=== PATIENT | female | born 1960 | race Caucasian/White ===

== ENCOUNTER 2016-04-05 10:14 | Emergency (ER) | payer MEDICARE, OTHER ==
--- NOTE | ~2016-04-05 | CR172 ---
[facility] A Service of [facility] RADIOLOGY TEXT RESULTS PATIENT: THOMPSON OCASIO LOCATION: SED : 64 UNIT #: [id number] AGE: [address]: Lucio Ren MD SEX: F ORDER DR: [id number] [place] [id number] E MR#: [id number] Acc #: [id number] NAME: THOMPSON OCASIO : 1960 SEX: F STUDY DATE/TIME: 04/05/2016 10:44 UNIT: SED ROOM: STUDY DESCRIPTION: CR Knee 3 Views Lt Attending Physician: Lucio Ren M.D. Ordering Physician: Lucoi Ren M.D. Primary Care Physician: Lucio Ren M.D. MEDICAL IMAGING REPORT This report is preliminary unless electronic signature is present. EXAM Left knee series, 04/05/2016. HISTORY Trauma; fall. Also wants thumb looked at. Fall last night outside; tripped over flower pot. Headache. Left knee pain/soreness. FINDINGS AP, lateral, and sunrise views of the left knee are presented. No traumatic fracture or malalignment. Mild narrowing, medial joint space compartment. Minimal vascular calcification. Small subcutaneous calcification, medial aspect of the patella. No soft tissue defect, subcutaneous air, or radiodense foreign body. No joint effusion seen. Dictated by... Jovany Kelly M.D. THIS IS AN ELECTRONICALLY VERIFIED REPORT Jovany Kelly M.D. at 04/06/2016 7:54 AM JC/cynthia TD: 04/05/2016 12:18 JOB #: [id number] MEDICAL IMAGING REPORT
--- NOTE | ~2016-04-05 | CT71 ---
[facility] A Service [facility] RADIOLOGY TEXT RESULTS PATIENT: THOMPSON OCASIO LOCATION: SED : 64 UNIT #: [id number] AGE: [address]: Lucio Ren MD SEX: F ORDER DR: [id number] [place] [id number] E MR#: [id number] Acc #: [id number] NAME: THOMPSON OCASIO : 1960 SEX: F STUDY DATE/TIME: 04/05/2016 10:46 UNIT: SED ROOM: STUDY DESCRIPTION: CT Head Wo Contrast Attending Physician: Lucio Ren M.D. Ordering Physician: Lucio Ren M.D. Primary Care Physician: Lucio Ren M.D. MEDICAL IMAGING REPORT This report is preliminary unless electronic signature is present. EXAM Head CT, 04/05 INDICATION Patient fell last night outside. Tripped over flower pot. Patient has headaches since that time. Pain is 10/10. The patient has prior history of intracranial hemorrhage. TECHNIQUE This CT exam was performed with one or more of the following radiation dose reduction techniques: automatic exposure control, adjustment of mA and/or kV according to patient size, and iterative reconstruction. FINDINGS Axial images were obtained from the base to the vertex without contrast. Comparison is made with 07/16/2014. There has been interval left side frontotemporal craniotomy. No skull fracture. There is acute sphenoid sinusitis on the left. Ventricular size and configuration are normal. There is no acute infarct or hemorrhage. There are no masses. IMPRESSION 1. The brain is within normal limits. 2. Interval left side craniotomy. No skull fractures or acute hemorrhage identified. 3. Mild acute left sphenoid sinusitis. Dictated by... Marcelo Herron Jr., M.D. THIS IS AN ELECTRONICALLY VERIFIED REPORT Marcelo Herron Jr., M.D. at 04/05/2016 3:51 PM PAMELA/amber [facility] A Service of [facility] RADIOLOGY TEXT RESULTS PATIENT: THOMPSON OCASIO LOCATION: [facility] : [birth year] UNIT #: [id number] AGE: [address]: Lucio Ren MD SEX: F ORDER DR: TD: 04/05/2016 12:00 JOB #: [id number] MEDICAL IMAGING REPORT
[~2016-04-05 10:14] MED LIST: ABILIFY PO; ACTOS; ALPRAZOLAM PO; AMOXICILLIN PO; ASPIRIN EC81 M1 PO; ASPIRIN PO; ATIVAN PO; BACTRIM DS TABL1 TAB PO; BACTROBAN15 GM TOP; BENTYL20 M1 PO; BLOOD PRESSURE MED PO; BLOOD SUGAR MED; CIPRO PO; CLEOCIN PO; COZAAR PO; DEPAKOTE PO; DIOVAN; DIOVAN40 MG PO; DOLOBID500 MG PO; FLEXERIL10 MG PO; FLOMAX0.4 MG PO; FLONASE16 GM; GABAPENTIN; GLUCOTROL; GLUCOTROL PO; HCTZ; HUMULOG INSULIN; IBUPROFEN800 MG PO; IMODIUM2 MG PO; JANUVIA PO; LEVEMIR INSULIN SQ; LIPITOR; LIPITOR PO; LOPRESSOR PO; LYRICA75 MG PO; METFORMIN HCL500 M1 PO; METFORMIN PO; MICROZIDE12.5 M1 PO; NAPROXEN PO; NEXIUM; NEXIUM PO; NORVASC10 MG PO; NORVASC2.5 MG; OPANA10 MG; OXYCODONE15 MG; PERCOCET 51 UDTAB 5/ DOB; PERCOCET PO; PERCOCET5/325 PO; PHENERGAN PO; PHENERGAN25 M1 PO; PHENERGAN25 MG PO; PREDNISONE PO; PROAIR HFA8.5 GM INH; REMERON; SOMA; SOMA250 MG; SYMBICORT INH; TOPROL XL; TRICOR; TRICOR PO; VOLTAREN50 MG PO; VOLTAREN75 MG PO; ZITHROMAX PO; ZYRTEC; ZYRTEC PO
[2016-04-05 10:23] LABS: URINE SOURCE CLEAN CATCH
[2016-04-05 10:25] LABS: URINE APPEARANCE CLEAR; URINE BILIRUBIN NEG (NEG); URINE BLOOD NEG (NEG); URINE COLOR YELLOW; URINE GLUCOSE 300 MG/DL (NORM); URINE KETONE NEG (NEG); URINE LEUKOCYTE ESTERASE NEG (NEG); URINE NITRATE NEG (NEG); URINE PROTEIN 1+ (NEG); URINE SPECIFIC GRAVITY 1.015 (1.003-1.035); URINE UROBILINOGEN 0.2 MG/DL (NORM)
[2016-04-05 10:27] LABS: MICRO INDICATED? YES
[2016-04-05 10:36] LABS: CULTURE INDICATED? NO; URINE BACTERIA NEG (NEG); URINE RBC 0-2 /[HPF] (0-2); URINE WBC 0-2 /[HPF] (0-5)
== END 2016-04-05 12:04 | disposition home or self-care (01) ==
LOC: SED 10:14
PROVIDERS: Emergency Medicine
DX: S80.02XA Contusion of left knee, initial encounter (principal); J32.3 Chronic sphenoidal sinusitis; J44.9 Chronic obstructive pulmonary disease, unspecified; F41.9 Anxiety disorder, unspecified; F17.210 Nicotine dependence, cigarettes, uncomplicated; Z88.8 Allergy status to other drugs, medicaments and biological substances; Z88.5 Allergy status to narcotic agent; Z79.899 Other long term (current) drug therapy; Z79.4 Long term (current) use of insulin
CPT/HCPCS: 70450; 73562; 81003; 99284

== ENCOUNTER 2016-08-11 03:58 | Emergency (ER) | payer MEDICARE, OTHER ==
--- NOTE | ~2016-08-11 | CR72 ---
[facility] A Service of [facility] & [facility] RADIOLOGY TEXT RESULTS PATIENT: THOMPSON OCASIO LOCATION: [facility] : [birth year] UNIT #: [id number] AGE: [address]: Elmer Munoz MD SEX: F ORDER DR: [id number] [facility] [address] [place], [place] [address] [id number] E MR#: [id number] Acc #: [id number] NAME: THOMPSON OCASIO : 1960 SEX: F STUDY DATE/TIME: 08/11/2016 4:36 UNIT: [facility] ROOM: STUDY DESCRIPTION: CR Chest Single View Portable Attending Physician: Elmer Munoz M.D. Ordering Physician: Elmer Munoz M.D. Primary Care Physician: Lucio Ren M.D. MEDICAL IMAGING REPORT This report is preliminary unless electronic signature is present EXAM Single view chest INDICATION Shortness of air 3 days. FINDINGS Single portable AP chest compared to 09/23/2011. The heart and mediastinal contours are normal. Lungs are clear. IMPRESSION Negative chest radiograph. Dictated by... Tono Vogt M.D. THIS IS AN ELECTRONICALLY VERIFIED REPORT Tono Vogt M.D. at 08/11/2016 5:18 AM CAM/tadeo TD: 08/11/2016 05:02 JOB #: [id number] MEDICAL IMAGING REPORT Page 1 of 1 COPY
[2016-08-11 04:58] LABS: BASOPHIL# 0.1 X10e3 (0-0.3); BASOPHIL% 0.9 % (0-2.5); DIFF IND NO; EOSINOPHIL# 0.6 X10e3 (0-0.7); HEMATOCRIT 40.2 % (35.0-45.0); HEMOGLOBIN 13.5 gm/dL (12.0-16.0); LYMPHOCYTE# 2.7 X10e3 (1.0-3.5); LYMPHOCYTE% 29.2 % (17.0-45.0); MEAN CORPUSCULAR HEMOGLOBIN 30.3 PG (28-34); MEAN CORPUSCULAR HGB CONC 33.7 g/dL (30-36); MEAN PLATELET VOLUME 10.9 FL (6.5-11.5); MONOCYTE# 0.5 X10e3 (0-1.0); MONOCYTE% 5.9 % (3.0-12.0); NEUTROPHIL# 5.3 X10e3 (1.5-7.1); PLATELET COUNT 222 X10e3 (140-420); RED BLOOD COUNT 4.46 X10e (3.90-5.30); RED CELL DISTRIBUTION WIDTH 12.1 % (11.0-15.5); WHITE BLOOD COUNT 9.3 X10e3 (4.0-10.5)
[2016-08-11 05:19] LABS: BUN/CREATININE RATIO 28.18; CALCIUM SERUM 9.1 mg/dL (8.4-10.2); CREATININE SERUM 1.1 mg/dL (0.6-1.4); GLOM FILT RATE Estimated 57.3 mL/min (>60)
[2016-10-31] MEDS ORDERED: TRICOR (09:53)
[2016-10-31] MEDS ORDERED: METOPROLOL SUCC50 MG PO (09:53)
[2016-10-31] MEDS ORDERED: NORVASC (09:54)
[2016-10-31] MEDS ORDERED: PROAIR HFA8.5 GM (09:54)
[2016-10-31] MEDS ORDERED: LIPITOR (09:54)
[2016-10-31] MEDS ORDERED: SYMBICORT80 INH (09:54)
[2016-10-31] MEDS ORDERED: HCTZ (09:54)
[2016-10-31] MEDS ORDERED: LEVEMIR (09:55)
== END 2016-08-11 05:45 | disposition home or self-care (01) ==
LOC: CED 03:58
PROVIDERS: Emergency Medicine
DX: J44.1 Chronic obstructive pulmonary disease with (acute) exacerbation (principal); R60.0 Localized edema; E11.9 Type 2 diabetes mellitus without complications; I50.9 Heart failure, unspecified; F17.200 Nicotine dependence, unspecified, uncomplicated; Z88.8 Allergy status to other drugs, medicaments and biological substances; Z88.5 Allergy status to narcotic agent; Z79.899 Other long term (current) drug therapy; Z79.4 Long term (current) use of insulin
CPT/HCPCS: 36415; 71010; 80048; 85025; 94640; 99284

== ENCOUNTER 2016-09-22 11:31 | Emergency (ER) | payer MEDICARE, OTHER ==
[2016-09-22 11:49] LABS: URINE APPEARANCE CLEAR; URINE BLOOD NEG (NEG); URINE COLOR YELLOW; URINE KETONE TRACE (NEG); URINE LEUKOCYTE ESTERASE NEG (NEG); URINE NITRATE NEG (NEG); URINE PROTEIN 2+ (NEG); URINE SOURCE CLEAN CATCH; URINE SPECIFIC GRAVITY >=1.030 (1.003-1.035); URINE UROBILINOGEN 0.2 MG/DL (NORM)
[2016-09-22 11:54] LABS: MICRO INDICATED? YES; URINE BILIRUBIN NEG (NEG); URINE GLUCOSE NORM (NORM)
[2016-09-22 11:55] LABS: CULTURE INDICATED? NO; URINE BACTERIA NEG (NEG); URINE RBC NEG /[HPF] (0-2); URINE SQUAMOUS EPITHELIAL CELL OCCAS /[HPF]; URINE WBC NEG /[HPF] (0-5)
[2016-09-22 11:56] LABS: URINE MUCUS PRESENT
[2016-10-31] MEDS ORDERED: TRICOR (09:53)
[2016-10-31] MEDS ORDERED: METOPROLOL SUCC50 MG PO (09:53)
[2016-10-31] MEDS ORDERED: PROAIR HFA8.5 GM (09:54)
[2016-10-31] MEDS ORDERED: HCTZ (09:54)
[2016-10-31] MEDS ORDERED: LIPITOR (09:54)
[2016-10-31] MEDS ORDERED: NORVASC (09:54)
[2016-10-31] MEDS ORDERED: SYMBICORT80 INH (09:54)
[2016-10-31] MEDS ORDERED: LEVEMIR (09:55)
== END 2016-09-22 12:29 | disposition home or self-care (01) ==
LOC: SED 11:31
PROVIDERS: Emergency Medicine
DX: R11.10 Vomiting, unspecified (principal); R19.7 Diarrhea, unspecified; J44.9 Chronic obstructive pulmonary disease, unspecified; F41.9 Anxiety disorder, unspecified; Z95.5 Presence of coronary angioplasty implant and graft; Z98.51 Tubal ligation status; Z88.5 Allergy status to narcotic agent; F17.210 Nicotine dependence, cigarettes, uncomplicated; Z88.8 Allergy status to other drugs, medicaments and biological substances
CPT/HCPCS: 81003; 99284

== ENCOUNTER 2016-09-28 11:45 | Emergency (ER) | payer MEDICARE, OTHER ==
[~2016-09-28] VITALS: Ht 152.4 cm; Wt 65.8 kg
[2016-10-31] MEDS ORDERED: TRICOR (09:53)
[2016-10-31] MEDS ORDERED: METOPROLOL SUCC50 MG PO (09:53)
[2016-10-31] MEDS ORDERED: SYMBICORT80 INH (09:54)
[2016-10-31] MEDS ORDERED: HCTZ (09:54)
[2016-10-31] MEDS ORDERED: NORVASC (09:54)
[2016-10-31] MEDS ORDERED: LIPITOR (09:54)
[2016-10-31] MEDS ORDERED: PROAIR HFA8.5 GM (09:54)
[2016-10-31] MEDS ORDERED: LEVEMIR (09:55)
== END 2016-09-28 12:00 | disposition left against medical advice (07) ==
LOC: CED 11:45
DX: Z53.21 Procedure and treatment not carried out due to patient leaving prior to being seen by health care provider (principal)

== ENCOUNTER 2016-09-30 11:47 | Emergency (ER) | payer MEDICARE, OTHER ==
[~2016-09-30] VITALS: Ht 152.4 cm; Wt 65.8 kg
[2016-10-31] MEDS ORDERED: METOPROLOL SUCC50 MG PO (09:53)
[2016-10-31] MEDS ORDERED: TRICOR (09:53)
[2016-10-31] MEDS ORDERED: HCTZ (09:54)
[2016-10-31] MEDS ORDERED: LIPITOR (09:54)
[2016-10-31] MEDS ORDERED: NORVASC (09:54)
[2016-10-31] MEDS ORDERED: SYMBICORT80 INH (09:54)
[2016-10-31] MEDS ORDERED: PROAIR HFA8.5 GM (09:54)
[2016-10-31] MEDS ORDERED: LEVEMIR (09:55)
== END 2016-09-30 12:20 | disposition left against medical advice (07) ==
LOC: CED 11:47
DX: Z53.21 Procedure and treatment not carried out due to patient leaving prior to being seen by health care provider (principal)